=== PATIENT | male | born 1955 | race Caucasian/White ===

== ENCOUNTER → 2019-05-24 10:17 | Outpatient (CLI) | payer BC, SELFPAY ==
--- NOTE | 2019-05-24 | DI.RAD.S_ITS ---
PROCEDURE: XR CHEST 2V INDICATIONS: URI/COUGH TECHNIQUE: 2 views of the chest were acquired. COMPARISON: None. FINDINGS: Surgical changes and devices: None. Lungs and pleura: Lungs are clear. No pleural effusions or pneumothorax. Mediastinum: Mediastinal contours are normal. Heart size is normal. Bones and chest wall: No suspicious bony abnormalities. Soft tissues appear unremarkable. IMPRESSION: Normal for age, source of current cough symptoms is not seen. Dictated by: Juan Tellez M.D. on 05/24/2019 at 10:44 Approved by: Juan Tellez M.D. on 05/24/2019 at 10:45
== END ==
PROVIDERS: PCP Internal Medicine; Referring Provider Internal Medicine; Visit Provider Internal Medicine
DX: J06.9 Acute upper respiratory infection, unspecified (principal); R05 Cough
CPT/HCPCS: 71046

== ENCOUNTER → 2023-03-05 07:28 | Outpatient (CLI) | payer MEDICARE, BC, SELFPAY ==
--- NOTE | 2023-03-09 11:51 | DI.NM.S_ITS ---
DATE OF SERVICE: 03/05/2023 PROCEDURE: Exercise treadmill stress testing without imaging. ORDERING PROVIDER: Andrew Ross MD INDICATIONS: The patient is a 68-year-old male with hyperlipidemia, hypertension, and a strong family history of coronary disease. EXERCISE TREADMILL TESTIN. The patient was able to exercise for 11 minutes and 27 seconds on a standard Mo protocol suggesting excellent exercise capacity with an NANCY of -45%, achieving 12.8 METS. 2. He had a normal heart rate response to exercise, achieving a maximum heart rate of 163 BPM (106% of his predicted maximum). He had a mild hypertensive blood pressure response to exercise with a resting blood pressure of 136/80 increasing to a maximum of 200/100. 3. He denied any chest discomfort or anginal symptoms. 4. His resting ECG shows sinus rhythm with normal ST segments, but he developed 4-[address] depression in the lateral leads at peak exercise that promptly improved although remained abnormal 5 minutes into recovery. He had PVCs, initially in a bigeminal pattern in stage I, but generally improving with exercise although with rare couplets at peak exercise and early recovery. There were no sustained or other complex arrhythmias. IMPRESSION: 1. Abnormal exercise treadmill study with ECG evidence concerning for myocardial ischemia with stress but no high risk indicators otherwise. 2. Excellent exercise capacity without angina and a mild hypertensive blood pressure response. 3. Occasional PVCs with exercise, initially in a bigeminal pattern but generally improving with exercise although with ventricular couplets at peak exercise. [employer] - JORDAN/niesha/ARNALDO doc#: [id number]/job#: [id number] dd: 03/05/2023 16:18:00 dt: 03/06/2023 00:16:00 DICTATING MD/COPIES TO: Guero Baugh MD; Andrew Ross MD COPIES MNE: KOFI;
== END ==
PROVIDERS: PCP Nurse Practitioner Family; Referring Provider Internal Medicine Cardiovascular Disease; Visit Provider Internal Medicine Cardiovascular Disease
DX: E78.49 Other hyperlipidemia (principal); I10 Essential (primary) hypertension; Z82.49 Family history of ischemic heart disease and other diseases of the circulatory system; R94.39 Abnormal result of other cardiovascular function study
CPT/HCPCS: 93017